=== PATIENT | female | born 1965 | race Caucasian/White ===

== ENCOUNTER 2016-08-13 23:22 | Emergency (ER) | payer OTHER ==
--- NOTE | ~2016-08-13 | CR72 ---
[facility] A Service of [facility] RADIOLOGY TEXT RESULTS PATIENT: KIP AGUAYO LOCATION: [facility] : [birth year] UNIT #: [id number] AGE: [address]: Immanuel Ponce MD SEX: F ORDER DR: [id number] [facility] [address] [place], [place] [address] [id number] E MR#: [id number] Acc #: [id number] NAME: KIP AGUAYO. : 1965 SEX: F STUDY DATE/TIME: 08/13/2016 21:26 UNIT: PRICILA ROOM: STUDY DESCRIPTION: CR Chest Single View Portable Attending Physician: Immanuel Ponce M.D. Ordering Physician: Cain Melvin M.D. Primary Care Physician: Primary Care Physician No MEDICAL IMAGING REPORT This report is preliminary unless electronic signature is present EXAM Portable AP view of the chest COMPARISON May 17, 2016 and May 14, 2016. INDICATIONS 51-year-old female with cough and dyspnea for 3 days. History of breast cancer. FINDINGS Left internal jugular approach chest port catheter appears stable with the tip terminating upper SVC. Suture material is seen in the left pulmonary apex. There are diffuse interstitial opacities throughout the lungs and the heart appears mildly enlarged, possibly accentuated by portable technique. Findings seem to reflect mild interstitial pulmonary edema. Correlation to exclude signs of pneumonia recommended. No pleural effusion. No pneumothorax. IMPRESSION Fair amount of cardiomegaly with diffuse interstitial opacities in a symmetric fashion, suggesting mild interstitial edema. Correlation to exclude signs of pneumonia recommended. No pleural effusion. Dictated by... Nabeel Go M.D. THIS IS AN ELECTRONICALLY VERIFIED REPORT Nabeel Go M.D. at 08/16/2016 10:15 PM Jovon TD: 08/14/2016 07:02 [facility] A Service [facility] RADIOLOGY TEXT RESULTS PATIENT: KIP AGUAYO LOCATION: [facility] : 69 UNIT #: [id number] AGE: [address]: Immanuel Ponce MD SEX: F ORDER DR: JOB #: [id number] MEDICAL IMAGING REPORT Page 1 of 1 COPY
--- NOTE | ~2016-08-13 | EKG ---
PATIENT: KIP AGUAYO UNIT #: [id number] Ventricular Rate: 63 BPM Atrial Rate: 63 BPM P-R Interval: 150 ms QRS Duration: 90 ms Q-T Interval: 438 ms QTC Calculation(Bezet): 448 ms P [place]: 68 degrees Calculated R [place]: 58 degrees Calculated T [place]: 40 degrees Diagnosis Line: Normal sinus rhythm Diagnosis Line: Normal ECG Diagnosis Line: No previous ECGs available Diagnosis Line: Confirmed by YENIFER MORALES MD ([id number]) on 08/14/2016 Diagnosis Line: 4:38:19 PM INTERPRETING MD: ANDREW HOWARD
[2016-08-13 21:26] LABS: ARTERIAL BLD GAS O2 SATURATION 82.6 % (90.0-100.0); ARTERIAL BLOOD GAS CARBOXY HB 12.5 %sat (0.0-9.0); ARTERIAL BLOOD GAS HCO3 30.4 mmol/L; ARTERIAL BLOOD GAS MET HB 0.6 %sat (0.0-2.0); ARTERIAL BLOOD GAS PO2 87.2 mmHg (80.0-100); ARTERIAL BLOOD GAS pH 7.342 (7.350-7.450)
[2016-08-13 21:29] LABS: ARTERIAL BLOOD GAS ALLEN TEST Y; ARTERIAL BLOOD GAS PCO2 56.1 mmHg (35.0-45.0); ARTERIAL DRAW? YES
[2016-08-13 21:30] LABS: ARTERIAL BLOOD GAS ART SITE LEFT RADIAL
[2016-08-13 22:05] LABS: BASOPHIL# 0.1 X10e3 (0-0.3); BASOPHIL% 0.5 % (0-2.5); DIFF IND NO; EOSINOPHIL# 0.5 X10e3 (0-0.7); EOSINOPHIL% 4.3 % (0.0-7.0); HEMATOCRIT 46.3 % (35.0-45.0); LYMPHOCYTE# 1.7 X10e3 (1.0-3.5); LYMPHOCYTE% 15.8 % (17.0-45.0); MEAN CELL VOLUME 102.6 FL (83-96); MEAN CORPUSCULAR HEMOGLOBIN 33.1 PG (28-34); MEAN CORPUSCULAR HGB CONC 32.3 g/dL (30-36); MEAN PLATELET VOLUME 9.3 FL (6.5-11.5); MONOCYTE# 0.4 X10e3 (0-1.0); NEUTROPHIL% 75.4 % (40-75); PLATELET COUNT 179 X10e3 (140-420); RED BLOOD COUNT 4.51 X10e (3.90-5.30); RED CELL DISTRIBUTION WIDTH 14.9 % (11.0-15.5); WHITE BLOOD COUNT 10.6 X10e3 (4.0-10.5)
[2016-08-13 22:14] LABS: POC - CKMB <1.0 ng/mL (0.0-7.9); POC - TROPONIN <0.05 ng/mL (<=0.05)
[2016-08-13 22:16] LABS: INFLUENZA A NEG (NEG); INFLUENZA B NEG (NEG)
[2016-08-13 22:29] LABS: ALBUMIN SERUM 3.4 g/dL (3.5-5.0); BILIRUBIN, DIRECT 0.2 mg/dL (0.0-0.2); BILIRUBIN,INDIRECT 0.4 mg/dL (0.0-0.9); BILIRUBIN,TOTAL 0.6 mg/dL (0.2-2.0); CALCIUM SERUM 8.2 mg/dL (8.4-10.2); GLOM FILT RATE Estimated 66.1 mL/min (>60); POTASSIUM 4.7 mmol/L (3.5-5.1); PROTEIN TOTAL SERUM 7.3 g/dL (6.0-8.3)
[~2016-08-13 23:22] MED LIST: ACETAMINOPHEN PO; ACETAMINOPHEN325 MG PO; ACID CONTROLLER20 MG PO; ADVAIR 1001 DISK W/D PO; ADVAIR DISKU1 500/50 INH; ALBUTEROL17 G1 IH; ALBUTEROL17 GM IH; ALBUTEROL17 GM INH; ALPHA LIPOIC A200 MG PO; ALPRAZOLAM PO; AMBIEN PO; AMBIEN10 MG PO; APAP-BUTALBITA1 EACH PO; ARTIFICIAL TEAR1 DRP OP; AUGMENTIN PO; B50 COMPLEX PO; BACTRIM DS TABL1 TAB PO; BENZONATATE PO; BUPAP; BUSPAR PO; BUSPIRONE HCL10 MG PO; C-10001000 M1 PO; CARNITOR; CARNITOR330 MG PO; CELEXA PO; CEPHADYN; CO Q-1075 MG PO; CO Q1060 MG PO; COENZYME Q 10; COMBIVENT RESPIM4 GM INH; COMBIVENT U/D3 ML INH; COMPLEX B30 ML; COUMADIN PO; CYMBALTA30 MG PO; DEPO MEDROL; DIAZEPAM PO; DIFLUCAN PO; DILANTIN PO; DRONABINOL5 MG PO; DULERA 100 MCG/13 GM IH; ENDOCET 10-3251 TAB PO; ESCITALOPRAM OX10 MG PO; FAMOTIDINE PO; FEROSUL325 ( 651 PO; FERRO-TIME325 MG PO; FERROUS SULFATE PO; FLEXERIL PO; FLORINEF0.1 MG PO; FOLIC ACID PO; GABAPENTIN800 MG PO; IPRATROPIUM0.2 MG/ML NEB; IRON PO; K-DUR20 ME1 PO; KCL PO; KEPPRA XR750 MG PO; KEPPRA750 MG PO; L-CARNITINE25 GM; L-CARNITINE250 M1 PO; L-CARNITINE500 M1 PO; LAMICTAL PO; LAMOTRIGINE200 MG PO; LASIX PO; LASIX20 MG PO; LEVAQUIN PO; LEVAQUIN750 MG PO; LEVOCARNITINE330 MG PO; LEVOFLOXACIN500 MG PO; LEVOTHROID25 MCG PO; LITHIUM PO; LOMOTIL TABLET1 TAB PO; LOMOTIL WHITE2.5 MG DOB; LOMOTIL WHITE2.5 MG PO; LORTAB 10/500 T1 TAB PO; LUNESTA PO; LUVOX CR150 MG PO; LUVOX PO; MARINOL5 MG PO; MELOXICAM15 MG PO; MOBIC PO; MOBIC15 MG PO; MOTION RELIEF25 MG PO; MUCUS ER1200 MG; MYCOSTATIN POWD15 GM TOP; NEURONTIN PO; NITROGLYGERIN0.4 MG SL; NOLVADEX PO; NORCO 10/325 TA1 TAB PO; OMNICEF300 MG PO; OXYCODON-ACETA1 EAC1 PO; OXYCODONE HCL5 MG PO; PERCOCET 7.5-31 EACH PO; PERCOCET10 PO; PHENERGAN PO; PHENOBARB PO; PHENOBARBITAL97.2 MG PO; PREDNISONE10 MG PO; PREMARIN PO; PRISTIQ50 MG PO; PROVENTIL0.83 MG/ML IH; REMERON PO; REMERON SOLTAB PO; REMERON45 MG PO; RIBOFLAVIN; SINGULAIR PO; SPIRIVA18 MCG INH; SUPER B-50 COMP1 CAP PO; SUPER B-COMPLEX1 TA1 PO; SYMBICORT INH; SYMBICORT80 INH; SYNTHROID PO; SYNTHROID25 MCG PO; SYSTANE 0.3-0.415 ML OP; TAMOXIFEN CITRA20 MG PO; TAMOXIFEN10 MG PO; THIAMINE 250 MG; TOPAMAX50 MG PO; TRYPSIN COMPLEX60 GM TP; TYLOX 5-500 CA1 EACH PO; VANCOMYCIN HCL1 GM IV; VENTOLIN HFA; VENTOLIN5 MG/ML IH; VIT B; VITAMIN C1000 M2 PO; WARFARIN SODIU7.5 MG PO; WARFARIN SODIUM10 M1 PO; WARFARIN SODIUM2 M1 PO; WELLBUTRIN-SR100 M1 PO; XANAX0.5 MG PO; XANAX1 MG; XANAX2 MG PO; XARELTO20 MG PO; ZOFRAN PO; [UNRECOGNIZED DRUG - OTHER]; [UNRECOGNIZED DRUG - OTHER]; [UNRECOGNIZED DRUG - OTHER] PO
== END 2016-08-13 23:43 | disposition home or self-care (01) ==
LOC: CED 23:22
PROVIDERS: Emergency Medicine
DX: J44.1 Chronic obstructive pulmonary disease with (acute) exacerbation (principal); T58.91XA Toxic effect of carbon monoxide from unspecified source, accidental (unintentional), initial encounter; Z88.2 Allergy status to sulfonamides; Z88.1 Allergy status to other antibiotic agents; Z88.8 Allergy status to other drugs, medicaments and biological substances; Z79.899 Other long term (current) drug therapy
CPT/HCPCS: 36415; 36600; 71010; 80048; 80076; 82553; 82803; 83880; 84484; 85025; 87804; 93005; 96374; 99284; J2930

== ENCOUNTER 2016-09-07 20:18 | Inpatient (IN) | payer OTHER ==
--- NOTE | ~2016-09-07 | EKG ---
PATIENT: KIP AGUAYO UNIT #: [id number] Ventricular Rate: 80 BPM Atrial Rate: 80 BPM P-R Interval: 142 ms QRS Duration: 90 ms Q-T Interval: 404 ms QTC Calculation(Bezet): 465 ms P [place]: 69 degrees Calculated R [place]: 70 degrees Calculated T [place]: 41 degrees Diagnosis Line: Normal sinus rhythm Diagnosis Line: Normal ECG Diagnosis Line: Diagnosis Line: Confirmed by DEANGELO WILSON MD ([id number]) on 09/07/2016 Diagnosis Line: 10:40:12 PM INTERPRETING MD: STEVE HOWARD
--- NOTE | ~2016-09-07 | CR212 ---
[facility] A Service of [facility] & [facility] RADIOLOGY TEXT RESULTS PATIENT: KIP AGUAYO LOCATION: [place] [address]- : [birth year] UNIT #: [id number] AGE: [address]: Willi Lisa MD SEX: F ORDER DR: [id number] [facility] [address] [place], [place] [address] [id number] I MR#: [id number] Acc #: [id number] NAME: KIP AGUAYO. : 1965 SEX: F STUDY DATE/TIME: 09/14/2016 21:35 UNIT: C4 ROOM: [facility] STUDY DESCRIPTION: CR Ribs Unilateral 2 View Lt Attending Physician: Maynor Lisa M.D. Ordering Physician: Maynor Lisa M.D. Primary Care Physician: Primary Care Physician No MEDICAL IMAGING REPORT This report is preliminary unless electronic signature is present EXAM PA chest with left rib detail series (4 images) DATE 09/14/2016 HISTORY Cough, left rib pain since 09/14/2016. [place] a pop while coughing. COPD. Shortness of breath. COMPARISON PA and lateral chest 09/12/2016. CT chest 11/24/2013. FINDINGS Right lower lobe airspace disease has markedly improved. Mild bibasilar infiltrates do remain. Interstitial markings are present within both lungs, which are nonspecific and may reflect changes of emphysema, which are seen to better advantage on the CT chest from 11/24/2013. There is stable cardiomegaly. No definite pleural effusion. Left chest wall [id number]-[id number] extends into the mid SVC. No pneumothorax is visible. Old distal right clavicle fracture. Surgical changes of the left upper quadrant of the abdomen. Presumed cholecystectomy clips in place. Surgical chain sutures in the left upper lung zone. No acute displaced left rib fractures identified. IMPRESSION 1. No acute displaced left rib fractures seen. 2. Mild bibasilar atelectasis or infiltrates, right greater than left, with significant interval improved aeration in the right lower lobe when compared to the 09/12/2016 examination. 3. Emphysema. STS. [facility] A Service of [facility] & [facility] RADIOLOGY TEXT RESULTS PATIENT: KIP AGUAYO LOCATION: [place] [address] : [birth year] UNIT #: [id number] AGE: [address]: Willi Lisa MD SEX: F ORDER DR: 4. Stable cardiomegaly. Dictated by... Tiki Erwin M.D. THIS IS AN ELECTRONICALLY VERIFIED REPORT Tiki Erwin M.D. at 09/15/2016 9:59 PM [facility]/jeremias TD: 09/14/2016 22:55 JOB #: [id number] MEDICAL IMAGING REPORT Page 1 of 1 COPY
--- NOTE | ~2016-09-07 | CR72 ---
[facility] A Service of [facility] RADIOLOGY TEXT RESULTS PATIENT: KIP AGUAYO LOCATION: [facility] [address] : [birth year] UNIT #: [id number] AGE: [address]: Willi Lisa MD SEX: F ORDER DR: [id number] [facility] [address] [place], [place] [address] [id number] I MR#: [id number] Acc #: [id number] NAME: KIP AGUAYO. : 1965 SEX: F STUDY DATE/TIME: 09/07/2016 19:41 UNIT: CEDOF ROOM: [id number] STUDY DESCRIPTION: CR Chest Single View Portable Attending Physician: Willi Lisa Ordering Physician: Ed Doc Ivonne Li Primary Care Physician: Primary Care Physician No MEDICAL IMAGING REPORT This report is preliminary unless electronic signature is present EXAM Portable chest x-ray, 09/07/2016 HISTORY Short of air. Comparison 08/13/2016. FINDINGS Left side chest port unchanged. Stable mild cardiac enlargement. Pulmonary vasculature mildly prominent. Diffuse pattern of interstitial prominence throughout the lungs bilaterally and symmetrically. More pronounced than on prior examination. Given the cardiac enlargement, this probably reflects interstitial pulmonary edema. Diffuse interstitial pneumonia might be considered in the appropriate clinical context. Patient appears to have undergone prior wedge resection in the left lung apex. A component of underlying chronic interstitial lung disease could be present. There is no dense airspace consolidation, pleural effusion or pneumothorax. 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 No change. No acute bony abnormality. Dictated by... Jagdeep Bustillo M.D. THIS IS AN ELECTRONICALLY VERIFIED REPORT Jagdeep Bustillo M.D. at 09/08/2016 10:21 PM MICHEAL/samira TD: 09/07/2016 23:42 JOB #: [id number] MEDICAL IMAGING REPORT [facility] A Service of [facility] RADIOLOGY TEXT RESULTS PATIENT: KIP AGUAYO LOCATION: [place] [address]- : [birth year] UNIT #: [id number] AGE: [address]: Willi Lisa MD SEX: F ORDER DR: Page 1 of 1 COPY
--- NOTE | ~2016-09-07 | HP ---
Unit #: [id number] #: [id number] Patient: KIP AGUAYO [id number] [address] [place], [place] [address] [id number] I MR#: [id number] NAME: KIP AGUAYO. ROOM: [facility] Age: 51 Sex: F Admission Date: 09/07/2016 : 1965 Attending Physician: Maynor Lisa M.D. Primary Care Physician: No Primary Care Physician HISTORY AND PHYSICAL HISTORY OF PRESENT ILLNESS The patient is a pleasant, 51-year-old lady with a history of COPD/asthma, who presents with two to three days worsening shortness of breath. The patient is having progressive dyspnea. The patient is having worsening chest tightness and worsening shortness of breath. No really significant fever, chills, nausea, vomiting and diarrhea. The patient has had no clear sick contacts. The patient has an EKG which shows normal sinus rhythm. There has been no recent travel and the patient is on home oxygen at four liters. The patient has a long history of bronchiectasis and approximately five years the patient had Klebsiella pneumoniae. She is being seen by [facility] at home and, due to low oxygen at home, she presented to the hospital. The patient was also tachycardiac, usually, she is not. PAST MEDICAL/SURGICAL HISTORY Right breast lumpectomy, hysterectomy, status post gastric bypass, status post cholecystectomy, status post port placement, history of seizure disorder, history of ITP, history of chronic migraine, history of stress incontinence, history of arthritis, history of depression, history of endometriosis, history of atrial fibrillation with anticoagulation, history of breast cancer, history of oophorectomy. SOCIAL HISTORY The patient is a recent smoker, approximately half pack per day. FAMILY HISTORY Positive for COPD and lung cancer. ALLERGIES Sulfa, erythropoietin, valproic acid, erythromycin, propofol, simvastatin, azithromycin and diphenhydramine. HOME MEDICATIONS 1. Gabapentin 800 mg three times daily. 2. Levothyroxine 25 mcg p.o. daily. 3. Dronabinol 5 mg p.o. three times a day. 4. Tamoxifen 20 mg daily every evening. 5. Citalopram 10 mg at bedtime. 6. Xarelto 20 mg daily. 7. Lamictal 250 mg p.o. twice daily. 8. BuSpar 10 mg twice daily. 9. Singulair 10 mg daily. 10. Coenzyme Q 200 mg daily. 11. Phenobarbital 97.2 mg at night. 12. Lasix 20 mg daily. Unit #: [id number] #: [id number] Patient: KIP AGUAYO 13. Mirtazapine 45 mg at bedtime. 14. Meclizine 25 mg p.o. three times daily. 15. Levocarnitine 990 mg three times daily. 16. Potassium 99 mg one daily. 17. Melatonin 10 mg at bedtime. 18. Oxycodone 7.5 mg once daily. PHYSICAL EXAMINATION VITAL SIGNS: T-current 37.1. Respiratory rate 16. Pulse 93. Sating 90% on four liters nasal cannula. Blood pressure 100/59 to 83/53. HEENT: Extraocular movements are intact. CHEST: Clear to auscultation bilaterally. CARDIOVASCULAR: Regular rate. No gallop. ABDOMEN: Soft, nontender, nondistended. EXTREMITIES: Trace to 1+ edema. DIAGNOSTIC STUDIES LABORATORY: Blood gas: 7.35, 58 and 73. White count 7.2, hemoglobin 14.6, platelets 195. Basic metabolic: BUN and creatinine 13 and 0.8, glucose 49. Cardiac enzymes negative. IMAGING: Chest x-ray shows mild cardiac enlargement, diffuse interstitial infiltrates, status post left lung apex surgery. No dense airspace consolidation. CARDIOVASCULAR: EKG is normal sinus rhythm. ASSESSMENT AND PLAN COPD exacerbation, possibly viral. We are going to send viral swabs. We are going to check procalcitonin. Continue scheduled nebs. Continue scheduled antibiotics and continue scheduled steroids. Hopefully, the patient will improve over the next two to three days. We will follow along. Dictated by Ivonne Alfaro TD: 09/09/2016 07:53 JOB #: [id number] HISTORY AND PHYSICAL Page 1 of 1 X Willi Lisa MD HISTORY AND PHYSICAL
--- NOTE | ~2016-09-07 | CR63 ---
[facility] A Service of [facility] & [facility] RADIOLOGY TEXT RESULTS PATIENT: KIP AGUAYO LOCATION: [facility] [id number] : [birth year] UNIT #: [id number] AGE: [address]: Willi Lisa MD SEX: F ORDER DR: [id number] [facility] [address] [place], [place] [address] [id number] I MR#: [id number] Acc #: [id number] NAME: KIP AGUAYO. : 1965 SEX: F STUDY DATE/TIME: 09/12/2016 12:29 UNIT: [facility] ROOM: [facility] STUDY DESCRIPTION: CR Chest 2 View Attending Physician: Maynor Lisa M.D. Ordering Physician: Arlen Calhoun A.P.R.N. Primary Care Physician: Primary Care Physician No MEDICAL IMAGING REPORT This report is preliminary unless electronic signature is present EXAM Chest 2 views, 09/12/2016 COMPARISON Single view chest, 09/07/2016 HISTORY Exacerbation of COPD, CHF, shortness of air since August 07. FINDINGS Two views of the chest were obtained. There is interval new patchy alveolar infiltrate in the right lung base involving the right lower lobe. Previously noted mild prominence of interstitial markings suggestive of mild chronic interstitial lung disease is redemonstrated. Follow-up study suggested after treatment to ensure resolution of the right lung base infiltrate. Port cath is in the left upper chest with the tip in the superior aspect of the SVC. Heart is of normal size. Bones do not demonstrate any new abnormality. 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 IMPRESSION 1. Interval new right lower lobe infiltrate is noted. Follow-up after treatment is suggested to ensure resolution. 2. Stable port cath and stable mild chronic interstitial lung disease. 3. 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 Dictated by... Katherine Fitch M.D. THIS IS AN ELECTRONICALLY VERIFIED REPORT Katherine Fitch M.D. at 09/14/2016 3:07 PM CPR/kevon STS. [facility] A Service of [facility] & [facility] RADIOLOGY TEXT RESULTS PATIENT: KIP AGUAYO LOCATION: [place] [address]- : [birth year] UNIT #: [id number] AGE: [address]: Willi Lisa MD SEX: F ORDER DR: TD: 09/12/2016 15:19 JOB #: [id number] MEDICAL IMAGING REPORT Page 1 of 1 COPY
--- NOTE | ~2016-09-07 | DS ---
Unit #: [id number] #: [id number] Patient: KIP AGUAYO [id number] [address] [place], [place] [address] [id number] I MR#: [id number] NAME: KIP AGUAYO ROOM: [facility] Age: 51 Sex: F Admission Date: 09/07/2016 : 1965 Discharge Date: Attending Physician: Maynor Lisa M.D. Primary Care Physician: No Primary Care Physician DISCHARGE SUMMARY BRIEF HISTORY This is a 51-year-old lady with a history of severe asthma, who presents with asthma exacerbation to the hospital. The patient was previously seen in May for a short hospitalization. Now, she presents with 2-3 days of significant shortness of breath. The patient is having progressive dizziness and chest tightness. No fevers, chills, nausea, vomiting, diarrhea. No clear sick contacts. EKG: Normal sinus rhythm. The patient is on home oxygen at 4 L. The patient has a long history of bronchiectasis, and has had Klebsiella pneumonia, bronchiectasis exacerbation. The patient has been seen by [facility]. The patient is also tachycardic. HOSPITAL COURSE The patient was placed now on IV antibiotics. Cultures have grown negative so far. The patient has slowly improved, and was less short of breath; however, on the date prior to discharge, the patient had a sudden cough and had severe left-sided rib pain. Rib films did not show a chest fracture, however, the patient is being sent home with plans to go to pulmonary rehab after discharge. The patient is agreeable. DISCHARGE MEDICATIONS Include: 1. Furosemide. 2. Lasix 20 mg daily. 3. Iron gluconate/iron sulfate tablets was 325 mg p.o. daily. 4. Mucinex [id number] as needed. 5. Singulair 10 mg daily. 6. Co-Enzyme-Q 200 mg daily. 7. Melatonin 10 mg q.h.s. 8. Meloxicam 15 mg as needed daily. 9. Oxycodone/acetaminophen 1 tablet p.o. q.i.d. p.r.n. 10. Levaquin 1050 mg every evening x2 days. 11. Potassium 60 mEq daily. 12. Levothyroxine 25 mcg daily. 13. Rivaroxaban 10 mg daily. 14. Gabapentin 800 mg t.i.d. 15. Lamictal 25 mg p.o. b.i.d. 16. Celexa 10 mg at bedtime. 17. Duo-Nebs 3 times a day as needed. 18. Remeron 10 mg at bedtime. 19. Dronabinol 5 mg p.o. t.i.d. Unit #: [id number] #: [id number] Patient: KIP AGUAYO 20. Meclizine 25 mg t.i.d. 21. Tamoxifen 20 mg daily. 22. BuSpar 10 mg twice a day. 23. Phenobarbital 97.2 mg bedtime. 24. Levocarnitine 990 mg at bedtime. 25. Lidoderm patch 5 mg up to 12 hours, remove after 12 hours. FOLLOW UP Follow-up with outpatient Pulmonary Rehab and follow-up with our office in approximately 2 weeks. Dictated by... Ivonne Alfaro TD: 09/15/2016 15:24 JOB #: [id number] DISCHARGE SUMMARY Page 1 of 1 X Willi Lsia MD X DISCHARGE SUMMARY
[2016-09-07 19:27] LABS: ARTERIAL BLD GAS O2 SATURATION 85.7 % (90.0-100.0); ARTERIAL BLOOD GAS CARBOXY HB 6.9 %sat (0.0-9.0); ARTERIAL BLOOD GAS HCO3 32.7 mmol/L; ARTERIAL BLOOD GAS MET HB 0.8 %sat (0.0-2.0); ARTERIAL BLOOD GAS pH 7.356 (7.350-7.450)
[2016-09-07 19:28] LABS: ARTERIAL BLOOD GAS ALLEN TEST NORMAL; ARTERIAL BLOOD GAS ART SITE RIGHT RADIAL; ARTERIAL BLOOD GAS DELIVERY NASAL CANNULA; ARTERIAL BLOOD GAS PCO2 58.5 mmHg (35.0-45.0); ARTERIAL BLOOD GAS PO2 73.6 mmHg (80.0-100); ARTERIAL DRAW? YES
[2016-09-07 20:20] LABS: BASOPHIL% 0.6 % (0-2.5); EOSINOPHIL# 0.3 X10e3 (0-0.7); EOSINOPHIL% 4.8 % (0.0-7.0); HEMATOCRIT 44.4 % (35.0-45.0); HEMOGLOBIN 14.6 gm/dL (12.0-16.0); LYMPHOCYTE# 1.5 X10e3 (1.0-3.5); LYMPHOCYTE% 20.4 % (17.0-45.0); MEAN CELL VOLUME 101.2 FL (83-96); MEAN CORPUSCULAR HEMOGLOBIN 33.2 PG (28-34); MEAN CORPUSCULAR HGB CONC 32.8 g/dL (30-36); MEAN PLATELET VOLUME 8.7 FL (6.5-11.5); MONOCYTE# 0.5 X10e3 (0-1.0); NEUTROPHIL# 4.8 X10e3 (1.5-7.1); NEUTROPHIL% 67.2 % (40-75); PLATELET COUNT 195 X10e3 (140-420); RED BLOOD COUNT 4.38 X10e (3.90-5.30); RED CELL DISTRIBUTION WIDTH 14.4 % (11.0-15.5); WHITE BLOOD COUNT 7.2 X10e3 (4.0-10.5)
[2016-09-07 20:22] LABS: DIFF IND NO
[2016-09-07 20:51] LABS: BUN/CREATININE RATIO 16.25; CALCIUM SERUM 8.5 mg/dL (8.4-10.2); CREATININE SERUM 0.8 mg/dL (0.6-1.4); GLOM FILT RATE Estimated 86.6 mL/min (>60); POTASSIUM 3.9 mmol/L (3.5-5.1)
[2016-09-07 21:50] LABS: POC - CKMB <1.0 ng/mL (0.0-7.9); POC - TROPONIN <0.05 ng/mL (<=0.05)
[2016-09-08] MEDS ORDERED: COENZYME Q10200 M2 PO (00:29)
[2016-09-08] MEDS ORDERED: POTASSIUM99 M1 PO (00:29)
[2016-09-08] MEDS ORDERED: MELATONIN10 M2 PO (00:30)
[2016-09-09 04:25] LABS: INFLUENZA A NEG (NEG); INFLUENZA B NEG (NEG)
[2016-09-09 06:47] LABS: BASOPHIL% 0.3 % (0-2.5); EOSINOPHIL% 0.1 % (0.0-7.0); HEMATOCRIT 40.7 % (35.0-45.0); HEMOGLOBIN 13.2 gm/dL (12.0-16.0); LYMPHOCYTE# 1.3 X10e3 (1.0-3.5); LYMPHOCYTE% 16.7 % (17.0-45.0); MEAN CELL VOLUME 101.7 FL (83-96); MEAN CORPUSCULAR HGB CONC 32.4 g/dL (30-36); MEAN PLATELET VOLUME 8.7 FL (6.5-11.5); MONOCYTE# 0.4 X10e3 (0-1.0); MONOCYTE% 4.7 % (3.0-12.0); NEUTROPHIL% 78.2 % (40-75); PLATELET COUNT 199 X10e3 (140-420); RED CELL DISTRIBUTION WIDTH 14.6 % (11.0-15.5); WHITE BLOOD COUNT 7.7 X10e3 (4.0-10.5)
[2016-09-09 06:56] LABS: DIFF IND NO
[2016-09-09 18:43] LABS: CREATININE SERUM 0.6 mg/dL (0.6-1.4); POTASSIUM 5.1 mmol/L (3.5-5.1)
[2016-09-10 08:19] LABS: CALCIUM SERUM 8.1 mg/dL (8.4-10.2); CREATININE SERUM 0.5 mg/dL (0.6-1.4); GLOM FILT RATE Estimated 113.7 mL/min (>60); POTASSIUM 4.5 mmol/L (3.5-5.1)
[2016-09-11 03:45] LABS: BASOPHIL% 0.4 % (0-2.5); EOSINOPHIL% 0.1 % (0.0-7.0); HEMOGLOBIN 12.6 gm/dL (12.0-16.0); LYMPHOCYTE# 0.8 X10e3 (1.0-3.5); LYMPHOCYTE% 10.9 % (17.0-45.0); MEAN CORPUSCULAR HEMOGLOBIN 33.1 PG (28-34); MEAN CORPUSCULAR HGB CONC 32.4 g/dL (30-36); MEAN PLATELET VOLUME 8.4 FL (6.5-11.5); MONOCYTE# 0.2 X10e3 (0-1.0); NEUTROPHIL# 5.9 X10e3 (1.5-7.1); NEUTROPHIL% 85.6 % (40-75); PLATELET COUNT 189 X10e3 (140-420); RED BLOOD COUNT 3.82 X10e (3.90-5.30); RED CELL DISTRIBUTION WIDTH 14.6 % (11.0-15.5); WHITE BLOOD COUNT 6.9 X10e3 (4.0-10.5)
[2016-09-11 03:47] LABS: DIFF IND NO
[2016-09-12 04:55] LABS: CALCIUM SERUM 7.8 mg/dL (8.4-10.2); CREATININE SERUM 0.6 mg/dL (0.6-1.4); POTASSIUM 4.7 mmol/L (3.5-5.1)
[2016-09-13 03:33] LABS: BASOPHIL% 0.1 % (0-2.5); EOSINOPHIL% 0.2 % (0.0-7.0); HEMATOCRIT 40.6 % (35.0-45.0); LYMPHOCYTE# 0.7 X10e3 (1.0-3.5); LYMPHOCYTE% 6.9 % (17.0-45.0); MEAN CELL VOLUME 102.8 FL (83-96); MEAN CORPUSCULAR HEMOGLOBIN 32.9 PG (28-34); MONOCYTE# 0.3 X10e3 (0-1.0); MONOCYTE% 2.7 % (3.0-12.0); NEUTROPHIL# 9.2 X10e3 (1.5-7.1); NEUTROPHIL% 90.1 % (40-75); PLATELET COUNT 182 X10e3 (140-420); RED BLOOD COUNT 3.95 X10e (3.90-5.30); RED CELL DISTRIBUTION WIDTH 14.6 % (11.0-15.5); WHITE BLOOD COUNT 10.2 X10e3 (4.0-10.5)
[2016-09-13 03:34] LABS: DIFF IND NO
[2016-09-14 07:16] LABS: BASOPHIL% 0.2 % (0-2.5); EOSINOPHIL% 0.4 % (0.0-7.0); HEMATOCRIT 40.1 % (35.0-45.0); HEMOGLOBIN 12.8 gm/dL (12.0-16.0); LYMPHOCYTE# 1.4 X10e3 (1.0-3.5); LYMPHOCYTE% 15.2 % (17.0-45.0); MEAN CELL VOLUME 102.6 FL (83-96); MEAN CORPUSCULAR HEMOGLOBIN 32.9 PG (28-34); MEAN PLATELET VOLUME 9.2 FL (6.5-11.5); MONOCYTE# 0.4 X10e3 (0-1.0); MONOCYTE% 4.2 % (3.0-12.0); NEUTROPHIL# 7.6 X10e3 (1.5-7.1); PLATELET COUNT 165 X10e3 (140-420); RED CELL DISTRIBUTION WIDTH 14.7 % (11.0-15.5); WHITE BLOOD COUNT 9.5 X10e3 (4.0-10.5)
[2016-09-14 07:17] LABS: DIFF IND NO
[2016-09-15 03:32] LABS: CALCIUM SERUM 7.9 mg/dL (8.4-10.2); CREATININE SERUM 0.5 mg/dL (0.6-1.4); GLOM FILT RATE Estimated 113.7 mL/min (>60); POTASSIUM 5.1 mmol/L (3.5-5.1)
[2016-09-15] MEDS ORDERED: LEVAQUIN750 M1 PO (15:31)
[2016-09-15] MEDS ORDERED: MUCUS RELIEF600 M1 PO (15:34)
[2016-09-15] MEDS ORDERED: LIDOCAINE1 EACH TD (15:36)
[2016-09-15] MEDS ORDERED: COMBIVENT U/D3 M2 NEB (15:38)
[2016-09-15] MEDS ORDERED: PREDNISONE10 MG PO (15:41)
== END 2016-09-15 16:25 | disposition home or self-care (01) | DRG 189 ==
LOC: CED 20:18 → CEDOF 22:00 → C4B 23:56
PROVIDERS: Emergency Medicine; Internal Medicine Pulmonary Disease; Registered Nurse
DX: J96.21 Acute and chronic respiratory failure with hypoxia (principal); Z99.81 Dependence on supplemental oxygen; J44.1 Chronic obstructive pulmonary disease with (acute) exacerbation; I48.91 Unspecified atrial fibrillation; J45.901 Unspecified asthma with (acute) exacerbation; G43.909 Migraine, unspecified, not intractable, without status migrainosus; F17.210 Nicotine dependence, cigarettes, uncomplicated; R00.0 Tachycardia, unspecified; Z90.710 Acquired absence of both cervix and uterus; Z90.49 Acquired absence of other specified parts of digestive tract; Z85.3 Personal history of malignant neoplasm of breast; Z80.1 Family history of malignant neoplasm of trachea, bronchus and lung; Z88.1 Allergy status to other antibiotic agents; Z88.2 Allergy status to sulfonamides; Z88.8 Allergy status to other drugs, medicaments and biological substances; M19.90 Unspecified osteoarthritis, unspecified site; Z79.01 Long term (current) use of anticoagulants
CPT/HCPCS: 36415; 36600; 71010; 71020; 71100; 80048; 82308; 82553; 82803; 82947; 84484; 85025; 87804; 93005; 94640; 94760; 94761; 96374; 99285; G0378; J1642; J1885; J1956; J2920; J2930; Q0167